=== PATIENT | male | born 2000 | race Hispanic/Latino ===

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

== ENCOUNTER 2024-01-12 21:28 | Emergency (ER) | payer MEDICAID, OTHER ==
[~2024-01-12] VITALS: Ht 182.9 cm; Wt 99.8 kg
[2024-01-12 21:50] LABS: APPEARANCE,URINE CLEAR (CLEAR); BILIRUBIN,URINE NEGATIVE (NEGATIVE); COLOR,URINE YELLOW (YELLOW); GLUCOSE, URINE (UA) >=1000 mg/dL (NEGATIVE); KETONES,URINE 5 mg/dL (NEGATIVE); LEUKOCYTE ESTERASE ,URINE NEGATIVE Leu/uL (NEGATIVE); NITRATE,URINE NEGATIVE (NEGATIVE); OCCULT BLOOD,URINE NEGATIVE (NEGATIVE); PH,URINE 5.5 (5.0-8.0); PROTEIN,URINE 30 mg/dL (NEGATIVE); UROBILINOGEN,URINE 3 mg/dL (0.2-1.0)
[2024-01-12 21:51] LABS: ADD UA MICROSCOPIC YES
[2024-01-12 21:52] LABS: BACTERIA,URINE RARE /HPF (None Seen); MUCUS,URINE FEW LPF (None Seen); OTHER CASTS, URINE 1 /LPF (None Seen); SQUAMOUS EPITHELIAL CELL,UR RARE /HPF (0-2)
[2024-01-12 21:53] LABS: BASOPHILS # (AUTO) 0.03 K/uL (0.00-0.20); BASOPHILS % (AUTO) 0.6 % (0.0-5.0); EOSINOPHILS # (AUTO) 0.01 K/uL (0.00-0.70); EOSINOPHILS % (AUTO) 0.2 % (0.0-8.0); HEMATOCRIT 38.5 % (42-54); IMMATURE GRANULOCYTE ABSOLUTE 0.01 K/uL (0-1); LYMPHOCYTES # (AUTO) 2.1 K/uL (1.0-4.8); LYMPHOCYTES % (AUTO) 38.7 % (21.0-51.0); MEAN CORPUSCULAR HEMOGLOBIN 31.6 pg (27.0-33.0); MEAN CORPUSCULAR HGB CONC 34.8 g/dL (32.0-36.0); MEAN CORPUSCULAR VOLUME 90.8 fL (79-99); MONOCYTES # (AUTO) 0.7 K/uL (0.1-1.0); MONOCYTES % (AUTO) 12.3 % (3.0-13.0); NEUTROPHILS # (AUTO) 2.6 K/uL (1.8-7.7); PLATELET COUNT (AUTO) 156 K/uL (130-400); RED BLOOD CELL COUNT(AUTO) 4.24 MIL/uL (4.50-6.20); RED CELL DISTRIBUTION WIDTH 11.3 % (11.0-15.5); WHITE BLOOD COUNT (AUTO) 5.5 K/uL (4.8-10.8)
[2024-01-12 21:57] LABS: RAPID GROUP A STREP negative (NEGATIVE)
[2024-01-12 22:02] LABS: SARS-CoV-2, RNA, NAAT NEGATIVE SARS CoV-2 (NEGATIVE)
[2024-01-12 22:05] LABS: CARBON DIOXIDE 28 mmol/L (21-32); CHLORIDE 102 mmol/L (101-111); CREATININE 1.4 mg/dL (0.5-1.3); GLOMERULAR FILTR. RATE CALC 73 mL/min (>90); GLUCOSE,RANDOM 99 mg/dL (70-105); POTASSIUM 3.9 mmol/L (3.5-5.1); SODIUM SERUM 139 mmol/L (136-145); UREA NITROGEN, BLOOD 10 mg/dL (7-18)
[2024-01-12 22:07] LABS: INFLUENZA TYPE A Negative For Type A (NEGATIVE); INFLUENZA TYPE B Negative For Type B (NEGATIVE)
[2024-01-12 22:13] LABS: B-TYPE NATRIURETIC PEPTIDE 73 pg/mL (0-100)
[2024-01-12 22:18] LABS: ALBUMIN 3.7 g/dL (3.5-5.0); BILIRUBIN,DIRECT < 0.1 mg/dL (0.0-0.3); BILIRUBIN,TOTAL 0.4 mg/dL (0.2-1.0)
[2024-01-12 22:32] LABS: CREATINE KINASE, TOTAL 496 U/L (21-232)
[2024-01-12] MEDS: LIDOCAINE HCL 2% VISCOUS 15 ML UDCUP PO ONE (23:17)
[2024-01-12] MEDS: MAG/ALUM/SIMETH 30 ML UDCUP PO ONE (23:17)
[2024-01-12] MEDS: 0.9%NACL 1000ML 1,000 ML IV ONE ×2 (23:17→23:18)
[2024-01-12] MEDS: PANTOPRAZOLE 40 MG/VIAL IVP ONE (23:17)
[2024-01-12] MEDS: DICYCLOMINE HCL 10 MG/5 ML ML PO ONE (23:17)
[2024-01-12 23:34] LABS: ASPARTATE AMINOTRANSFERASE 27 U/L (10-37)
[2024-01-12 23:44] LABS: ALANINE AMINOTRANSFERASE 20 U/L (12-78)
[2024-01-13 02:02] VITALS: BP 127/77; PULSE 60; RESP 20; O2SAT 100
[2024-01-13] MEDS ORDERED: PANT20TA PO (02:12)
== END 2024-01-13 02:32 | disposition home or self-care (01) ==
LOC: EDH 21:28
DX: K29.70 Gastritis, unspecified, without bleeding (principal); R74.8 Abnormal levels of other serum enzymes; Z20.822 Contact with and (suspected) exposure to COVID-19
CPT/HCPCS: 99285; 96374; 71045; 87635; 82550 ×2; 80076; 84484 ×2; 80048; 83880; 83690; 85025; 87880; 87804 ×2; 81001; 36415 ×2; 93005; J7030 ×2; J2470